=== PATIENT | female | born 1965 | race Caucasian/White ===

== ENCOUNTER 2016-03-25 17:35 | Inpatient (IN) | payer OTHER ==
[~2016-03-25] VITALS: Ht 157.5 cm; Wt 62.0 kg
[~2016-03-25 17:35] MED LIST: ALPR0.254 PO; ESCI5SOL4 PO; ESTR1TAB15 PO
[2016-03-25 17:42] VITALS: BP 123/82; PULSE 103; RESP 16; O2SAT 98
[2016-03-25] MEDS ORDERED: ESCI5SOL4 PO (18:13)
[2016-03-25] MEDS ORDERED: VALA1000 PO (18:13)
[2016-03-25] MEDS ORDERED: QUET100T69 PO (18:13)
[2016-03-25] MEDS ORDERED: ALPR0.5T8 PO (18:13)
--- NOTE | 2016-03-25 18:17 | ED.REPORT ---
HPI-Abd Pain F 40 and Over Date of Service Mar 25, 2016 ED Provider: Harlan Gutierrez MD Pt is a 50 year old female presenting to the ED from [facility] for RUQ abd pain onset 3 hours ago after eating. Denies fever, dysuria. Associated symptoms include nausea, vomiting and diarrhea. She reports previous similar symptoms. She states that she was seen 3 months ago for similar symptoms, and reports increasingly severe episodes over the past year. Nursing Notes Stated Complaint: ABDOMINAL PAIN Chief Complaint: Female Abdominal Pain Nursing Notes Reviewed: Yes Allergies: Coded Allergies: No Known Allergies (Unverified , 03/23/14) Scheduled Escitalopram Oxalate (Escitalopram Oxalate) 5 Mg/5 Ml Solution 20 MG PO DAILY Quetiapine Fumarate (Quetiapine Fumarate) 100 Mg Tablet 100 MG PO HS Scheduled PRN Alprazolam (Alprazolam) 0.5 Mg Tablet 0.5 MG PO QID PRN PRN For Anxiety Valacyclovir HCl (Valtrex) 1,000 Mg Tablet 1,000 MG PO BID PRN PRN COLD SORES General Time Seen by MD: 18:17 Chief Complaint Abdominal pain Hx Obtained From: Patient Arrived By: Walk-in Sudden in Onset?: Yes Onset Occurred: 1 - 4 hours ago Symptom Duration: Since onset Progression since Onset: Constant Location: : RUQ Quality: Painful Severity: Current: Moderate Severity: Maximum: Severe Recent Healthcare: No recent hospitalization, Recent doctor visit Similar Sx Previous: Yes Past Medical History Past Medical History Denies Past Surgical History Endoscopy Denies: Cholecystectomy Reports: Tubal ligation Smoking History Current Every Day Smoker Social History Alcohol Use: Denies alcohol use Ambulatory Status Independent Review of Systems Constitutional: Denies: Fever GI: Reports: Abdominal pain (RUQ), Diarrhea, Nausea, Vomiting Female: Denies: Dysuria Complete sys rev & neg: except as marked. Physical Exam Vital Signs Vital Signs (First) Date Time Temp Pulse Resp B/P Pulse Ox O2 Delivery O2 Flow Rate FiO2 03/25/16 17:42 36.8 103 16 123/82 98 03/25/16 22:07 Room Air Initial VS: Reviewed Head / Eyes: Atraumatic, Normocephalic, PERRL ENT: Mucous membranes moist, Conjunctiva normal, No scleral icterus Neck: Supple, Non-tender, Full range of motion Skin: Warm, Dry, No cyanosis Neurologic: Alert, Oriented, Nonfocal Psychiatric: Mood/affect normal, Behavior normal, Normal thought content General/Constitutional: Awake, Alert, Well appearing Respiratory / Chest: Breath sounds NL, Breath sounds = bilat, No respiratory distress, No rales, No rhonchi, No wheezing, No stridor Cardiovascular: Heart rate NL, Regular rhythm, Heart sounds NL, No gallop, No murmurs, No rubs Abdomen: BS normoactive Tenderness/Guarding/Rebound: Positive: Tender RUQ... (Severe) Interpretation & Diagnostics Interpretation & Diagnostics: US ABDOMEN: IMPRESSION: Cholelithiasis, and gallbladder sludge. Additionally there is pericholecystic fluid positive sonographic Key sign suspicious for acute cholecystitis. However, no definite gallbladder wall thickening or biliary ductal dilatation therefore please correlate clinically and with LFTs. Dictated by: Kike Burns M.D. on 03/25/2016 at 19:50 Lab Results Interpretation Result Diagram: 03/25/16 1845 03/25/16 1845 Test 03/25/16 18:45 White Blood Count 6.7th/mm3 (3.8-10.1) Red Blood Count 4.49mil/mm3 (3.90-5.20) Hemoglobin 14.3g/dL (12.0-15.6) Hematocrit 41.9% (35.0-46.0) Mean Corpuscular Volume 93.3fL (81-100) Mean Corpuscular Hemoglobin 31.8pg (27.0-35.0) Mean Corpuscular Hemoglobin Concent 34.1% (32.0-37.0) Red Cell Distribution Width 12.9% (12.3-15.4) Platelet Count 324bil/L (150-400) Neutrophils (%) (Auto) 57.7% (40-74) Lymphocytes (%) (Auto) 32.6% (14-46) Monocytes (%) (Auto) 5.8% (4-12) Eosinophils (%) (Auto) 3.3% (0-5) Basophils (%) (Auto) 0.6% (0-3) Sodium Level 137mEq/L (134-144) Potassium Level 4.2mEq/L (3.5-5.2) Chloride Level 97mEq/L (97-108) Carbon Dioxide Level 23mmol/L (18-29) Blood Urea Nitrogen 5mg/dL (6-24) Creatinine 0.63mg/dL (0.57-1.00) Estimat Glomerular Filtration Rate 142mL/min (>59) Glucose Level 131mg/dL (60-99) Lactic Acid Level 1.5mmol/L (0.4-2.0) Calcium Level 9.4mg/dL (8.5-10.1) Magnesium Level 2.1mg/dL (1.6-2.6) Total Bilirubin 0.2mg/dL (0.0-1.2) Aspartate Amino Transf (AST/SGOT) 28U/L (0-50) Alanine Aminotransferase (ALT/SGPT) 16U/L (0-32) Alkaline Phosphatase 102U/L (25-150) Total Protein 7.9g/dL (6.4-8.4) Albumin 4.8g/dL (3.4-5.0) Lipase 25U/L (13-60) Re-Eval/Medical Decision Med Decision/Clinical Course 50-year-old female with early acute cholecystitis. Reports that she become symptomatic whenever she eats at this point. She is nontoxic, we have treated her pain adequately with IV Dilaudid and Zofran for nausea. IV fluids and Zosyn started. She is admitted to Dr. Riggs, anticipate operative management in am. Re-Evaluation/Progress #1: Time of Eval: 21:32 Patient Status: Condition improved Re-Evaluation/Progress Note: Discussed US results. Pt pain much improved. Re-Evaluation/Progress #2: Time of Eval: 21:48 Patient Status: Condition improved Re-Evaluation/Progress Note: Discussed ultrasound results and plan for admission with surgery tomorrow. Re-Evaluation/Progress #3: Time of Eval: 22:01 Patient Status: Condition improved Re-Evaluation/Progress Note: Discussed consultation with Dr. Riggs. Pt understands and agrees with plan. Consultation #1: Referral / Consult Name: Kike Burns MD Call Returned at: 19:30 Note: Spoke with radiology about ultrasound results. Consultation #2: Referral / Consult Name: Kya Riggs MD Consulted With: Surgeon Call Returned at: 21:53 Machine Pecan Picker: Will see patient, Agrees with plan, Accepts admit Note: Admit the pt and she will take to surgery tomorrow. Counseled Regarding: Diagnosis, Lab results, Need for follow-up, When/why to return to ED Discharge & Departure Primary Impression: Acute cholecystitis Disposition: ADMITTED TO HOSPITAL (ERASED) Discharge Condition All VS Reviewed: Yes Condition: Improved Referrals: Ángel Vaughan MD (PCP) Danny Attestation Portions of this note were transcribed by Nydia Dickey. I, Dr. Gutierrez personally performed the history, physical exam and medical decision-making; I reviewed and confirmed the accuracy of the information in the transcribed note. Signed by : Danny You, 03/25/2016 and 2203. copies to: Ángel Vaughan MD, Donald L MD Mar 25, 2016 18:17 NYDIA DICKEY Mar 25, 2016 18:27
[2016-03-25] MEDS ORDERED: 0.9% Sodium Chloride 1,000 ML IV ONE (18:25)
[2016-03-25] MEDS ORDERED: Ondansetron 2 mg/mL 2 mL Inj IVPUSH PRN ×2 (18:25→22:15)
[2016-03-25] MEDS: HYDROmorphone 1 mg/mL Inj IVPUSH PRN ×2 (18:45→20:55)
[2016-03-25 18:58] LABS: BASOPHILS % (AUTO) 0.6 % (0-3); EOSINOPHILS % (AUTO) 3.3 % (0-5); MONOCYTES % (AUTO) 5.8 % (4-12); Mean Corpuscular Hemoglobin 31.8 pg (27.0-35.0); Mean Corpuscular Volume 93.3 fL (81-100); NEUTROPHILS % (AUTO) 57.7 % (40-74); Platelet Count 324 bil/L (150-400)
[2016-03-25 19:24] LABS: Magnesium 2.1 mg/dL (1.6-2.6)
--- NOTE | 2016-03-25 19:54 | DRSVH ---
PROCEDURE: US ABDOMEN INDICATIONS: ruq pain suspect cholecystitis TECHNIQUE: Real-time scanning was performed of the abdominal and retroperitoneal organs, with image documentatio n. COMPARISON: None. FINDINGS: Liver: Liver is normal in size and homogeneous in echotexture. Gallbladder: There is gallbladder sludge and a large mobile 1.4 cm gallstone. No definite gallbladder wall thickening. There is pericholecystic fluid. Positive sonographic Key sign. Biliary ducts: Intrahepatic bile ducts are non-dilated. Extrahepatic bile duct caliber is 3-4. No rmal is 6-7 mm or less in diameter, or 10 mm or less post-cholecystectomy. Pancreas: Visualized portions of the pancreas are sonographically normal. Pancreatic tail is obscur ed by shadowing bowel gas Spleen: Spleen is normal in size and homogeneous in echotexture. Kidneys: Kidneys are normal in size and echotexture. Right and left kidneys measure 9.9 and 10.8 cm in length, respectively. No hydronephrosis or nephrolithiasis. No solid masses. Aorta: Visualized aorta is normal in caliber at less than 3 cm. Iliacs: Proximal common iliac arteries are normal in caliber at less than 2.5 cm. IVC: Intrahepatic inferior vena cava is patent. Miscellaneous: No free abdominal fluid. IMPRESSION: Cholelithiasis, and gallbladder sludge. Additionally there is pericholecystic fluid positive sonograp hic Key sign suspicious for acute cholecystitis. However, no definite gallbladder wall thickening or biliary ductal dilatation therefore please correlate clinically and with LFTs. Dictated by: Kike Burns M.D. on 03/25/2016 at 19:50 Approved by: Kike Burns M.D. on 03/25/2016 at 19:52
[2016-03-25] MEDS ORDERED: _HYDROcodone/APAP 5-325 mg Tablet PO PRN (21:50)
[2016-03-25] MEDS ORDERED: _Ondansetron ODT 4 mg Tablet PO PRN (21:50)
[2016-03-25 22:07] VITALS: BP 129/59; PULSE 67; RESP 16; O2SAT 98
[2016-03-25] MEDS ORDERED: HYDROmorphone PCA 0.2 mg/mL 30 mL Inj IV PRN (22:15)
[2016-03-25] MEDS ORDERED: Alum-Mag Hydrox-Simeth 30 mL Suspension PO PRN (22:15)
[2016-03-25] MEDS ORDERED: ALPRAZolam 0.5 mg Tablet PO ONE (22:15)
[2016-03-25] MEDS ORDERED: Piperacillin-Tazo 3.375 Gm Inj 3.375 GM in Dextrose 5% Minibag Plus 50 ML IV ONE (22:15)
[2016-03-25] MEDS ORDERED: HYDROcodone-APAP 5-325 mg Tablet PO PRN (22:24)
[2016-03-25 22:59] VITALS: BP 129/59; PULSE 67; RESP 16; O2SAT 98
[2016-03-25 23:05] VITALS: BP 123/80; PULSE 64; RESP 16; O2SAT 98
[2016-03-25] MEDS: Lactated Ringer's 1,000 ML IV SCH (23:13)
[2016-03-26] VITALS (17 sets, daily range): BP systolic 95–117; BP diastolic 48–64; PULSE 60–102; RESP 11–16; O2SAT 94–100
[2016-03-26 00:23] LABS: APPEARANCE,URINE CLEAR (CLEAR,HAZY); COLOR,URINE YELLOW (YELLOW); OCCULT BLOOD,URINE TRACE (NEGATIVE); PH,URINE 6.5 (5.0-8.0); UROBILINOGEN,URINE NORMAL (NORMAL)
[2016-03-26] MEDS: Piperacillin-Tazo 3.375 Gm Inj 3.375 GM in Dextrose 5% Minibag Plus 50 ML IV SCH ×3 (01:21→16:16)
--- NOTE | 2016-03-26 02:19 | NUR ---
Admit Patient arrived to [facility] room 1008 via ER bed a little after 2300 with at bedside. A&Ox4, answering questions appropriately. IV patent and infusing ABX upon arrival to floor without issue. Patient stating ABD pain starting to creepy up and IVF and Dilaudid DIVERSIONAL THERAPIST set up. DIVERSIONAL THERAPIST education provided to patient and states understanding. Patient aware and compliant of NPO status in preparation for surgery in AM. Oriented to room and call light. Admit and med rec done by admit RN.
--- NOTE | 2016-03-26 08:44 | HP ---
[address] [address] HISTORY AND PHYSICAL PATIENT: SAQIB BAIRD : 1965 MR#: [id number] ADMIT: 03/25/2016 JOB ID: [id number] CHIEF COMPLAINT: Right upper quadrant pain. HISTORY OF PRESENT ILLNESS: The patient is a 50-year-old female who presented to the emergency department last night due to right upper quadrant pain. The patient has been having this type of problem for the past 18 months or so. The issue is mostly postprandial discomfort, associated with nausea, vomiting and diarrhea. The pain starts in the epigastric region and radiates to the right upper quadrant and then goes up to the right shoulder. Patient most recently had another episode on Wednesday night and then she went to her primary care at [facility] on Wednesday. An abdominal ultrasound was ordered. However, she never made it and ended up in the emergency department last night. The patient denies any fever but she did feel clammy. Workup in the emergency department last night did show a normal white count of 6.7; her total bilirubin was 0.2; lipase of 25. However, her abdominal ultrasound showed cholelithiasis, sludge and pericholecystic fluid, with positive sonographic Key sign. The patient was admitted overnight and has been started on IV antibiotics. PAST MEDICAL HISTORY: Tubal ligation and depression and anxiety. MEDICATIONS: Xanax, Lexapro and Valtrex. ALLERGIES: None. SOCIAL HISTORY: The patient is currently in between jobs. She lives with her in [place]. They have a son and a daughter. FAMILY HISTORY: Negative for gallbladder disease, and her parents are . REVIEW OF SYSTEMS: Positive for the postprandial pain, nausea, vomiting and diarrhea. All other systems reviewed were negative. PHYSICAL EXAMINATION: Patient currently in a hospital bed, in no acute distress. Temperature is 36.4, blood pressure 102/63, pulse is 65, respirations 16. Head is normocephalic, atraumatic. There is no scleral icterus. Neck is supple. Heart is regular rate. Lungs are clear bilaterally. Abdomen is mildly obese but it is mildly tender in the epigastric and right upper quadrant regions. There is definitely no rebound. There are no palpable masses. Extremities show no clubbing and no cyanosis. Neurologically, patient is awake and alert and follows commands. LABORATORY DATA: There are no repeat labs this morning. ASSESSMENT: This is a 50-year-old female with acute on chronic cholecystitis and cholelithiasis. Options were discussed with the patient. We will maintain on IV antibiotics, and she will be taken to the operating room today for a laparoscopic cholecystectomy, possible open. The risks of the operation were explained to the patient and her , and they understand and wish to proceed.
[2016-03-26] MEDS: Lactated Ringer's 1,000 ML IV SCH (08:46)
[2016-03-26] MEDS ORDERED: 0.9% Sodium Chloride 250 ML ONE (09:39)
--- NOTE | 2016-03-26 11:30 | NUR ---
Social Work Screen Note: SW met with patient at bedside to discuss discharge plan. Patient is a 50 year old female admitted on 03/25/16 for acute cholecystitis. Patient payer as [employer] [facility] [employer] [facility]. Patient has no intermediate disability nor VA benefits. Patient resides in [facility] with who to assist with care needs. Patient pharmacy of choice as [facility]. Patient has no HHC, SNF, DME history. Patient has no AD and declined completion of form when presented. Patient states Fritz, to assist with care needs at home. Patient denied any further discharge needs at this time. SW to follow pending further clinical course. PLAN: Home with via POV, pending clinical course. SW to follow. Med VILLATORO
--- NOTE | 2016-03-26 12:17 | NUR ---
Transfer to OR Pt. transferred to pre-op at 1205 via gurney. Pt. in stable condition. IV abx running. Pain reported at tolerable level. Report given to CAM MAKER prior to transfer.
[2016-03-26] MEDS ORDERED: Bupivacaine-MPF 0.5% W/EPI 30 mL Inj INJ ONE (12:37)
[2016-03-26] MEDS ORDERED: Lactated Ringer's 1,000 ML IV ONE (12:37)
[2016-03-26] MEDS ORDERED: Lactated Ringer's 500 ML IV PRN (13:11)
[2016-03-26] MEDS ORDERED: Lactated Ringer's 1,000 ML IV SCH (13:11)
--- NOTE | 2016-03-26 13:11 | PCM.HPANE ---
Patient Data Surgeon Admitting Provider:Kumar Townsend MD Attending Provider:Kumar Townsend MD Primary Care Physician:Ángel Vaughan MD Other Provider:Puma Spencer Anesthesia Reason for Visit Acute Cholecystitis Ht/WT & BMI Height (Feet): 5 Height (Inches): 2.00 Weight (Kilograms): 62.000 Body Mass Index 25.15 Allergies Coded Allergies: No Known Allergies (Unverified , 03/23/14) Past Anesthesia History Anesthesia History: Denies:: Abnormal Airway, Anesthesia Reactions, Difficult Intubation, Fam Anesthesia Reaction, Fam Malignant Hypertherm, Malignant Hyperthermia Diabetes History Hx Diabetes?: No MRSA MRSA: No Medications Hypertension Medication: No Home Meds Incl Beta Donny: No Reported Medications Valacyclovir HCl (Valtrex)1,000 Mg Tablet1,000 Mg PO BID PRN COLD SORES 30 Days 03/25/16 Alprazolam 0.5 Mg Tablet0.5 Mg PO QID PRN For Anxiety Ref 0 03/25/16 Escitalopram Oxalate 5 Mg/5 Ml [id number] Mg PO DAILY #1 BOTTLE Ref 0 03/25/16 Quetiapine Fumarate 100 Mg [id number] Mg PO HS Ref 0 03/25/16 Discontinued Reported Medications Estrogens Conj/Medroxyprog 0.3-1.5 mg (Prempro 0.3-1.5 mg)1 Each Tablet1.5 Each PO DAILY 03/23/14 Escitalopram Oxalate 5 Mg/5 Ml [id number] Mg PO DAILY #1 BOTTLE Ref 0 03/23/14 Alprazolam 0.25 Mg Tablet0.25 Mg PO TID PRN For Anxiety 30 Days Ref 0 03/23/14 History History of ENT Problems?: No HEENT History: Denies:: Abnormal Airway Difficult Intubation Hearing Problem Hx of Heart Problems?: No Hx of Respiratory Problem?: No Hx Neurologic Problems?: No Neurological History: Denies:: CVA Hx of GI Problems?: Yes Other GI Pertinent History: renae this admit Hx of Problems?: No Genitourinary History: Denies:: Urinary Tract Infection Female Hx: Denies:: Currently Endometriosis Pelvic Inflammatory Problems with Breasts? Hx Musculoskeletal Problems?: No Hx of Psycho/Social Problems?: Yes Psycho Social History: Positive for:: Anxiety Hx Depression Denies:: Bipolar Disorder Suicide Attempt Hx Surgeries?: Yes (TUBAL LIGATION) Hx Any Other Health Problems?: No History Blood Transfusions: Positive for:: Accept Blood Products? Denies:: Blood Transfusions Hx Diabetes: No Hx Alcohol Use: NoHx Substance Use: No Smoking Status: Current Every Day Smoker Stop/Bang Treated for Sleep Apnea?: No Do You Have a CPAP Machine?: No S-Snoring: Do You Snore Loudly: No T-Tired: feel tired, fatigued: No O-Obsered: Observed not breath: No P-Blood Pressure: treated: No B- Body Mass Index > 35 kg/m2: No A- Age over 50: Yes N- Neck Large Circumference: No G- Gender Male: No RAFAT Total Score: 0 RAFAT Risk Assessment: Low Risk, <3 Yes Risk Assessment Category Category 1A: Patient has history of documented sleep apnea, and HAS NOT received any narcotic, sedative or anesthesia administration during this stay. Category 1B: Patient has history of documented sleep apnea, and HAS received any narcotic , sedative or anesthesia administration during this stay Category 2: Patient has SUSPECTED Obstructive Sleep Apnea, and HAS received any narcotic , sedative or anesthesia administration during this stay. Category 3: Patient has SUSPECTED Obstructive Sleep Apnea and HAS NOT received narcotic, sedative or anesthesia administration during this stay. Category 4: Outpatient in Procedural Areas with known sleep apnea or who screen positive for High Risk via the STOP/BANG questionnaire. Exam Exam Vital Signs Vital Signs Date Time Temp Pulse Resp B/P Pulse Ox O2 Delivery O2 Flow Rate FiO2 03/26/16 08:09 36.9 70 16 117/61 98 Room Air 03/26/16 05:52 36.4 65 16 102/63 97 Room Air 03/26/16 05:29 16 97 General Appearance: Oriented X3, Cooperative HEENT/AIRWAY: MP 1 Lungs: Clear to Auscultation Heart: Exam Unremarkable Meds/Labs/Diagnostics Admission Meds Current Medications Sodium Chloride 1,000 ml @ 0 mls/hr Q0M ONCE IV Last administered on 18:45; Start 03/25/16 at 18:25; Stop 03/25/16 at 18:26; Status DC Piperacillin Sod/ Tazobactam Sod 3.375 gm/Dextrose/ Water 50 ml @ 100 mls/hr ONCE ONCE IV Last administered on 03/25/16 22:45; Start 03/25/16 at 22:15; Stop 03/25/16 at 22:44; Status DC Lactated Ringer's 1,000 ml @ 125 mls/hr Q8H IV Last administered on 03/26/16 08:46; Start 03/25/16 at 22:12 Piperacillin Sod/ Tazobactam Sod/ Dextrose/Water (Zosyn 3.375 Gm Inj/D5W Minibag Plus) 50 ml @ 12.5 mls/hr Q8 IV Last administered on 03/26/16 09:47; Start 03/26/16 at 00:30 Quetiapine Fumarate (SEROquel) 100 mg ONCE ONCE PO Last administered on 22:55; Start 03/25/16 at 22:15; Stop 03/25/16 at 22:20; Status DC Alprazolam 0.5 mg 0.5 mg ONCE ONCE PO Last administered on 03/25/16 22:59; Start 03/25/16 at 22:15; Stop 03/25/16 at 22:20; Status DC Sodium Chloride (Normal Saline) [facility] Last administered on 03/26/16 09:47; Start 03/26/16 at 09:39; Stop 03/26/16 at 09:41 ; Status DC Labs Test 03/25/16 18:45 03/25/16 22:56 White Blood Count 6.7th/mm3 (3.8-10.1) Red Blood Count 4.49mil/mm3 (3.90-5.20) Hemoglobin 14.3g/dL (12.0-15.6) Hematocrit 41.9% (35.0-46.0) Mean Corpuscular Volume 93.3fL (81-100) Mean Corpuscular Hemoglobin 31.8pg (27.0-35.0) Mean Corpuscular Hemoglobin Concent 34.1% (32.0-37.0) Red Cell Distribution Width 12.9% (12.3-15.4) Platelet Count 324bil/L (150-400) Neutrophils (%) (Auto) 57.7% (40-74) Lymphocytes (%) (Auto) 32.6% (14-46) Monocytes (%) (Auto) 5.8% (4-12) Eosinophils (%) (Auto) 3.3% (0-5) Basophils (%) (Auto) 0.6% (0-3) Sodium Level 137mEq/L (134-144) Potassium Level 4.2mEq/L (3.5-5.2) Chloride Level 97mEq/L (97-108) Carbon Dioxide Level 23mmol/L (18-29) Blood Urea Nitrogen 5mg/dL (6-24) Creatinine 0.63mg/dL (0.57-1.00) Estimat Glomerular Filtration Rate 142mL/min (>59) Glucose Level 131mg/dL (60-99) Lactic Acid Level 1.5mmol/L (0.4-2.0) Calcium Level 9.4mg/dL (8.5-10.1) Magnesium Level 2.1mg/dL (1.6-2.6) Total Bilirubin 0.2mg/dL (0.0-1.2) Aspartate Amino Transf (AST/SGOT) 28U/L (0-50) Alanine Aminotransferase (ALT/SGPT) 16U/L (0-32) Alkaline Phosphatase 102U/L (25-150) Total Protein 7.9g/dL (6.4-8.4) Albumin 4.8g/dL (3.4-5.0) Lipase 25U/L (13-60) Urine Color Yellow (YELLOW) Urine Appearance Clear (CLEAR,HAZY) Urine pH 6.5 (5.0-8.0) Urine Specific [place] 1.010 (1.003-1.035) Urine Protein Negativemg/dL (NEG,TRACE) Urine Glucose (UA) Negativemg/dL (NEGATIVE) Urine Ketones Negativemg/dL (NEGATIVE) Urine Occult Blood Trace (NEGATIVE) Urine Nitrite Negative (NEGATIVE) Urine Bilirubin Negative (NEGATIVE) Urine Urobilinogen Normalmg/dL (NORMAL) Urine Leukocyte Esterase Trace (NEGATIVE) Urine RBC 0-2/hpf (0-2) Urine WBC 0-5/hpf (0-5) Urine Epithelial Cells Moderate/hpf (NONE-MOD) Urine Crystals None seen (NONE SEEN) Urine Bacteria None/hpf (NONE-FEW) Urine Hyaline Casts None/lpf (NONE) Urine Granular Casts None seen (NONE SEEN) Urine Waxy Casts None seen (NONE SEEN) Urine Red Blood Cell Casts None seen (NONE SEEN) Urine White Blood Cell Casts None seen (NONE SEEN) Urine Mucus Present (None Seen) Urine Trichomonas None seen (NONE SEEN) Urine Yeast None (NONE SEEN) Urine Culture Reflexed Indicated Plan Impression Patient chart reviewed, patient interviewed and anesthestic plan with risks, benefits, and alternatives discussed, and informed consent obtained. ASA Physical Status: ASA2 Mod Systemic Disease Anesthetic Plan: GA Bene/Risks/Altern/Consents: Yes HP Complete Prior to Induction: Yes Jose Adhikari DO Mar 26, 2016 11:50
[2016-03-26] MEDS ORDERED: MetoCLOpramide 5 mg/mL 2 mL Inj IVPUSH PRN (13:15)
[2016-03-26] MEDS ORDERED: HYDROmorphone 1 mg/mL Inj IVPUSH PRN (13:15)
[2016-03-26] MEDS ORDERED: Dexamethasone 4 mg/mL Inj IVPUSH PRN (13:15)
[2016-03-26] MEDS ORDERED: fentaNYL-PF 50 mCg/mL 2 mL Inj IVPUSH PRN (13:15)
[2016-03-26] MEDS ORDERED: EPHEDrine Sulfate 50 mg/mL Inj IVPUSH PRN (13:15)
[2016-03-26] MEDS ORDERED: Phenylephrine 10,000 mCg/mL Inj IVPUSH PRN (13:15)
[2016-03-26] MEDS ORDERED: Ondansetron 2 mg/mL 2 mL Inj IVPUSH PRN (13:15)
[2016-03-26] MEDS ORDERED: Atropine 0.4 mg/mL Inj IVPUSH PRN (13:15)
[2016-03-26] MEDS ORDERED: hydrALAZINE 20 mg/mL Inj IVPUSH PRN (13:15)
[2016-03-26] MEDS ORDERED: Labetalol 5 mg/mL 4 mL Inj IV PRN (13:15)
[2016-03-26] MEDS ORDERED: HYDROmorphone 0.5 mg/0.5 mL iSecure Syringe IVPUSH PRN (13:55)
[2016-03-26] MEDS ORDERED: HYDROcodone-APAP 5-325 mg Tablet PO PRN (13:55)
--- NOTE | 2016-03-26 14:06 | OP ---
[address] [address] OPERATIVE REPORT PATIENT: SAQIB BAIRD : 1965 MR#: [id number] ADMIT: 03/25/2016 JOB ID: [id number] DATE OF SURGERY: 03/26/2016 SURGEON: Kumar Townsend MD SURVEY QUESTIONNAIRE DESIGNER: OR scrub. ANESTHESIA: General. PREOPERATIVE DIAGNOSIS(ES): Cholelithiasis and cholecystitis. POSTOPERATIVE DIAGNOSIS(ES): Cholelithiasis and cholecystitis. PRINCIPAL PROCEDURE: Laparoscopic cholecystectomy with intraoperative cholangiogram. INDICATION FOR PROCEDURE: The patient is a 50-year-old female with upper abdominal pain and ultrasound findings of cholelithiasis and possible cholecystitis. OPERATIVE FINDING: Principal finding is early acute cholecystitis. Successful laparoscopic cholecystectomy. The intraoperative cholangiogram was normal. PROCEDURE COURSE: The patient was brought to the operating table and was provided with general anesthesia. The patient had already been receiving IV antibiotics. She was provided with SCDs. A time-out was performed. The patient's abdomen was then prepped and draped in the usual sterile fashion. Next, local anesthetic was injected into the infraumbilical location and a 5 mm stab incision was made. A Veress needle was used to establish a pneumoperitoneum. Next, a 5 mm trocar was then placed and the laparoscope was introduced. A second 12 mm trocar was then placed in the subxiphoid location, and two additional 5 mm trocars were then placed in the right lateral abdomen. There was omentum covering the gallbladder and these were detached. The gallbladder was then retracted cephalad and dissection of the infundibulum and Calot triangle was then carried out. The cystic duct was able to be visualized and isolated completely. A clip was then placed on the gallbladder/cystic duct junction and a partial transection of the duct was made. Intraoperative cholangiogram demonstrated normal proximal and distal biliary anatomy, without any filling defects, and the contrast drained into the duodenum. Next, the cholangiocatheter was then removed from the patient. Two additional clips were then placed on the proximal cystic duct and the duct was then transected. The cystic artery was similarly identified and clipped and divided. Electrocautery was then used to detach the gallbladder from the gallbladder fossa. The specimen was then placed into the EndoCatch bag and removed from the patient. The right upper quadrant was irrigated and suctioned. Hemostasis was verified. There were no signs of arterial bleeding at the end the case. Next, we turned our attention to the subxiphoid port. The fascial defect there was then reapproximated using 0 Vicryl suture. Next, CO2 was allowed to escape. The skin edges were then reapproximated using absorbable sutures. By the end of the procedure, needle counts and sponge counts were correct. The patient was then extubated and taken to the recovery room in stable satisfactory condition.
[2016-03-26] MEDS: Ondansetron 2 mg/mL 2 mL Inj IVPUSH PRN ×2 (14:34→16:15)
--- NOTE | 2016-03-26 14:48 | PCM.ANEP1 ---
Post Anesthesia Phase 1 PACU Phase 1 Assessment Anesthetic Administered: GA Level of Alertness: Sleeping, hard to arouse REZA's with Equal Strength: Yes Pain: No Nausea or Vomiting: No Airway Device: Oralpharangeal Airway Oxygen Delivery: Simple Mask Jose Adhikari DO Mar 26, 2016 14:48
--- NOTE | 2016-03-26 14:49 | PCM.ANEP2 ---
Post Anesthesia Evaluation ASA/CMS Post Anesthesia VS in Patient's Normal Range?: Yes Resp Stable; Airway Patent?: Yes CV Function & Hydration Stable: Yes Mental Status Recovered?: Yes Pain control Satisfactory?: Yes N/V Control Satisfactory?: Yes Jose Adhikari DO Mar 26, 2016 14:49
--- NOTE | 2016-03-26 15:17 | DRSVH ---
PROCEDURE: X-RAY OPERATIVE CHOLANGIOGRAM ([id number]) INDICATIONS: CHOLIANGIOGRAM COMPARISON: None. FINDINGS: Biliary ducts: The surgeon injected contrast into the biliary ducts after cannulation of the cystic duct stump. Visualized intra- and extrahepatic bile ducts are normal in caliber, without strictures. No intraluminal filling defects to suggest retained ductal stones or sludge. No evidence for iatro genic ductal injury. Duodenum: Contrast flows promptly through the sphincter of Oddi into the duodenum, which appears nor mal in caliber. IMPRESSION: Small amount of extravasation at the cystic duct cannulation site otherwise normal operat brittny cholangiogram. Dictated by: Abbe Oleary RRA Interpreted: Sherrie Lee MD on 03/26/2016 at 15:16 Transcribed by: INDY on 03/26/2016 at 15:17 Approved by: Sherrie Lee MD, PhD on 03/26/2016 at 17:32
--- NOTE | 2016-03-26 17:47 | PCM.DISURG ---
Surgical Discharge Instruction Date of Service Mar 26, 2016 Dates of Hospitalization Date of Hospital Admission Mar 25, 2016 at 22:24 Providers Admitting Physician: Kumar Townsend MD Primary Care Physician: Ángel Vaughan MD Attending Physician: Kumar Townsend MD Discharge Diagnosis Discharge Diagnosis Cholecystitis s/p lap cholecystectomy Diet Discharge Diet: No restrictions Activity Discharge Activity-General: Balance rest and activity, Activity as pain allows , No lifting >15 pounds for 2 weeks, No driving while taking narcotic Dressing and Incisional Care Dressing Care: Keep dressing clean, dry & intact, Allow Steri Stripes to fall off Hygiene: May shower (Tomorrow) Additional Instructions Discharge Instructions Rx: norco #30, colace Follow Up Plan Follow-up Provider (F9): Elkin Sousa PA-C Follow-up appointment: Weeks (2-3) Call your provider for: Fever, Shortness of breath, Increasing abdominal pain, Vomiting, Discharge @ incision, pus discharge Kumar Townsend MD Mar 26, 2016 17:47
--- NOTE | 2016-03-26 17:48 | PCM.DISURG ---
Surgical Discharge Instruction Date of Service Mar 26, 2016 Dates of Hospitalization Date of Hospital Admission Mar 25, 2016 at 22:24 Providers Admitting Physician: Kumar Townsend MD Primary Care Physician: Ángel Vaughan MD Attending Physician: Kumar Townsend MD Activity Discharge Activity-General: Balance rest and activity, Activity as pain allows , No lifting >15 pounds for 2 weeks, No driving while taking narcotic Follow Up Plan Follow-up Provider (F9): Elkin Sousa PA-C Follow-up appointment: Weeks (2-3) Call your provider for: Fever, Shortness of breath, Increasing abdominal pain, Vomiting, Discharge @ incision, pus discharge Additional Information Additional Information OK to take home meds Kumar Townsend MD Mar 26, 2016 17:48
[2016-03-26] MEDS ORDERED: Neostigmine 1 mg/mL 5 mL Inj ONE (18:27)
[2016-03-26] MEDS ORDERED: Propofol 10,000 mCg/mL 20 mL Inj ONE (18:27)
[2016-03-26] MEDS ORDERED: Ondansetron 2 mg/mL 2 mL Inj ONE (18:27)
[2016-03-26] MEDS ORDERED: EPHEDrine/NS 5 mg/mL 5 mL Syringe ONE (18:27)
[2016-03-26] MEDS ORDERED: Lidocaine PF 1% 30 mL Inj ONE (18:27)
[2016-03-26] MEDS ORDERED: fentaNYL-PF 50 mCg/mL 2 mL Inj ONE (18:27)
[2016-03-26] MEDS ORDERED: Dexamethasone 4 mg/mL Inj ONE (18:27)
[2016-03-26] MEDS ORDERED: Glycopyrrolate 0.2 mg/mL 5 mL Inj ONE (18:27)
[2016-03-26] MEDS ORDERED: Rocuronium 10 mg/mL 5 mL Inj ONE (18:27)
--- NOTE | 2016-03-26 18:33 | NUR ---
Discharge Pt. transferred to home in stable condition at 1825. Walking and accompanied by spouse. IV dc'd prior to discharge. All instructions, scripts, and belongings with pt. Tolerating general diet well. Pain under control.
--- NOTE | 2016-03-27 14:07 | PCM.DC.SUR ---
Discharge Summary Date of Service: Date of Hospital Admission: Mar 25, 2016 at 22:24 Date of Operation(s): 03/26/2016 Date of Discharge: 03/26/2016 Diagnosis at Time of Discharge Primary diagnosis: Cholecystolithiasis Other diagnoses: 1. Depression 2. Anxiety Problems: Operation Laparoscopic cholecystectomy with intraoperative cholangiography Brief History and Physical: The patient is a 50-year-old female who presented to the emergency department due to right upper quadrant pain. The patient has been having this type of problem for the past 18 months or so. The issue is mostly postprandial discomfort, associated with nausea, vomiting and diarrhea. The pain starts in the epigastric region and radiates to the right upper quadrant and then goes up to the right shoulder. The patient most recently had another episode on Wednesday night and then she went to her primary care at [facility] on Wednesday. An abdominal ultrasound was ordered. However, she never made it and ended up in the emergency department. The patient denied any fever but she did feel clammy. Workup in the emergency department did show a normal white count of 6.7; her total bilirubin was 0.2; lipase of 25. However, her abdominal ultrasound showed cholelithiasis, sludge and pericholecystic fluid, with positive sonographic Key sign. Consultants: None Hospital Course: The patient was admitted and underwent the following operation without complication the following day. She was stable for discharge shortly after her operation on her operative day. Pathology: Pending Disposition: The patient was discharged to home on her operative day. Follow-up Plan: She will follow-up in the office with Elkin Sousa PA-C in 2-3 weeks. Alprazolam (Alprazolam) 0.5 Mg Tablet 0.5 MG PO QID PRN PRN For Anxiety ( Reported) Escitalopram Oxalate (Escitalopram Oxalate) 5 Mg/5 Ml Solution 20 MG PO DAILY ( Reported) Quetiapine Fumarate (Quetiapine Fumarate) 100 Mg Tablet 100 MG PO HS (Reported) Valacyclovir HCl (Valtrex) 1,000 Mg Tablet 1,000 MG PO BID PRN PRN COLD SORES ( Reported) copies to: Ángel Vaughan MD, Fred H PA-C Mar 27, 2016 14:07
--- NOTE | 2016-03-30 13:34 | PATH ---
SURGICAL PATHOLOGY Attending Physician:Kumar Townsend M.D. CASE STATUS: Signed Out PATIENT NAME: SAQIB BAIRD PID: [id number] : 1965 DATE COLLECTED:03/26/2016 22:38 SPECIMEN: Gallbladder CLINICAL HISTORY: ACUTE CHOLECYSTITIS 1). GALL BLADDER FINAL DIAGNOSIS: Gallbladder: Cholelithiasis with associated chronic cholecystitis and cholesterolosis. ICD10: K80.66 GROSS DESCRIPTION: The specimen is received in one formalin filled container labeled with the patient's name, sublabeled "gallbladder" and consists of a slightly opened 7.0 x 3.2 x 3.2 CM gallbladder. The serosa is smooth. The wall is 0.2-0.3 CM in thickness. The mucosa is a dark green in color. The lumen contains a dark green mucoid material in one light yellow green calculus which measures 1.1 x 1.0 x 1.0 CM. 5 account services representative sections are submitted in one cassette. 03/26/2016 [facility] ICD-9 CODES: CPT CODES: 1: 38373 Electronically Signed Out Harlan House MD [facility] [address], [place] [address] Technical component performed at [facility], [address] [place] [address] Ave[address], [place], [address]
== END 2016-03-26 18:28 | disposition home or self-care (01) | DRG 419 ==
LOC: SED 17:35 → OSC 22:24
PROVIDERS: ADMIT Surgery; ATTEND Surgery
PROC: BF131ZZ Fluoroscopy of Gallbladder and Bile Ducts using Low Osmolar Contrast (ICD-10-PCS; 2016-03-26)
PROC: 0FT44ZZ Resection of Gallbladder, Percutaneous Endoscopic Approach (ICD-10-PCS; principal; 2016-03-26 12:15)
DX: K80.00 Calculus of gallbladder with acute cholecystitis without obstruction (principal); F41.8 Other specified anxiety disorders

== ENCOUNTER 2016-06-23 15:40 | Emergency (ER) | payer OTHER ==
[~2016-06-23] VITALS: Ht 154.9 cm; Wt 54.5 kg
[~2016-06-23 15:40] MED LIST changes: -ALPR0.254 PO; +ALPR0.5T8 PO; -ESTR1TAB15 PO; +QUET100T69 PO; +VALA1000 PO
[2016-06-23 15:44] VITALS: BP 144/92; PULSE 91; RESP 16; O2SAT 99
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
[2016-06-23] MEDS ORDERED: diphenhydrAMINE 25 mg Capsule PO ONE (16:35)
== END 2016-06-23 16:53 | disposition home or self-care (01) ==
LOC: SED 15:40
DX: T25.122A Burn of first degree of left foot, initial encounter (principal); T31.0 Burns involving less than 10% of body surface; X12.XXXA Contact with other hot fluids, initial encounter; Y92.9 Unspecified place or not applicable; Y93.89 Activity, other specified; Y99.8 Other external cause status; F41.9 Anxiety disorder, unspecified; F32.9 Major depressive disorder, single episode, unspecified; F17.200 Nicotine dependence, unspecified, uncomplicated

== ENCOUNTER 2016-11-16 15:34 | Emergency (ER) | payer OTHER ==
[~2016-11-16] VITALS: Ht 154.9 cm; Wt 56.4 kg
[2016-11-16 15:50] VITALS: BP 151/113; PULSE 84; RESP 16; O2SAT 100
[2016-11-16] MEDS ORDERED: VENL-57 PO (16:28)
--- NOTE | 2016-11-16 17:02 | ED.REPORT ---
HPI-Psychiatric Illness Date of Service Nov 16, 2016 ED Provider: Canelo Hill PA-C Kirti is a 51-year-old female with a history of depression who presents emergency Department with a chief complaint of suicidal ideation. Patient reports a long history of depression and anxiety, multiple trials of antidepressant medications. Today she complains of thoughts of killing herself. She can site no precipitating event. She denies any plan or previous attempts. She denies a history of mental health hospitalizations, suicide by family members or close friends. She admits to drinking 1-3 alcoholic beverages in the evening, denies recreational drug use. She has been taking venlafaxine for the last 2 weeks. Patient presents with a supportive partner. She feels that admission may be helpful to her, but expresses anxiety about being "put in a mental institution." She denies significant medical history or physical complaints. Denies possibility of Nursing Notes Stated Complaint: SUICIDAL Chief Complaint: Psychiatric Complaint Nursing Notes Reviewed: Yes Allergies: Coded Allergies: No Known Allergies (Unverified , 03/23/14) Scheduled Quetiapine Fumarate (Quetiapine Fumarate) 100 Mg Tablet 100 MG PO HS Venlafaxine ER (Venlafaxine ER) 37.5 Mg Cap.er.24h 75 MG PO DAILY Scheduled PRN Alprazolam (Alprazolam) 0.5 Mg Tablet 0.5 MG PO QID PRN PRN For Anxiety hydrOXYzine Hcl (HydrOXYzine Hcl) 25 Mg Tablet 25-50 MG PO TID PRN PRN For Anxiety General Time Seen by MD: 16:36 Chief Complaint Suicidal ideation Risk-Psychiatric Illness Suicide Risk Stratification Suicide Risk Factors - Adult: No: Close associate suicide, Family Hx of Suicide , Previous attempt, Prior psych admission, Substance abuse RF Statements: Risk factors reviewed Past Medical History Past Medical History Anxiety and Depression Past Surgical History Endoscopy Reports: Tubal ligation Smoking History Current Every Day Smoker Social History Alcohol Use: Denies alcohol use Ambulatory Status Independent Review of Systems Review of Systems Note: General: Denies fever, chills, malaise. HEENT: Denies congestion, headache, sore throat. Respiratory: Denies dyspnea, cough, shortness of breath, wheezing. Cardiovascular: Denies chest pain, palpitations. Gastrointestinal: Denies vomiting, diarrhea, abdominal pain. Genitourinary: Denies frequency, urgency, dysuria, hematuria. Denies vaginal bleeding/discharge. Otherwise as noted in HPI. Physical Exam General: Well appearing, well developed, well nourished, no acute distress. Head: Atraumatic, normocephalic. Eyes: No scleral icterus or injection. No discharge. Vision grossly intact. ENT: Voice clear, hearing grossly intact. Respiratory: Regular rate and rhythm. Breath sounds present, clear to auscultation and equal bilaterally. No respiratory distress. No increased work of breathing, speaks in complete sentences. Cardiovascular: Regular rate and rhythm, without murmur, gallop or rub. No pedal edema. Gastrointestinal: Abdomen flat and non-tender without guarding or rebound. Bowel sounds normoactive. Negative CVA tenderness Skin: Warm and dry. Neurological: Normal gait, Grossly nonfocal. Cranial nerves: Vision grossly intact, PERRL, EOMI. Facial motion symmetrical, sensation to light touch over forehead, maxilla and mandible present and equal B /L. Voice clear and fluent, no drooling/pooling of saliva, uvula rises midline. Psychological: Alert and oriented. Speech appropriate, linear and logical. Behavior appropriate. Initial Vital Signs Vital Signs (First) Date Time Temp Pulse Resp B/P Pulse Ox O2 Delivery O2 Flow Rate FiO2 11/16/16 15:50 37.0 84 16 151/113 100 Room Air Elevated blood pressure Interpretation & Diagnostics Lab Results Interpretation Test 11/16/16 16:37 Re-Eval/Medical Decision Med Decision/Clinical Course Otherwise healthy 51-year-old female with a history of depression presents emergency Department with suicidal ideation. Patient reports ongoing depression and anxiety, worsening in the last month. Concerned that she might hurt herself , without plan or suicidal history. No history of hospitalizations. She has psychiatric follow-up arranged for December 01. Physical examination reveals normal medical instability, normal examination with normal vitals. I discussed the case with IRVING Amato who met with and examine the patient. We agree that inpatient treatment probably not most appropriate for this patient, and feel confident that if she can contract for safety and seek treatment on an outpatient basis this would be appropriate. The patient is wishing to be prescribed medications to "make it better." I conveyed my concerns about chronic psychotropic medications at in the emergency setting, and she was understanding. Except's offer of hydroxyzine prescription. Contracts convincingly for safety as described in discharge instructions. Advised psychiatric follow-up as planned, provided him a return precautions and crisis line. Patient and her partner verbalized understanding of and consent to the plan. I discussed this case with Dr. Antoine who expresses agreement. Discharge & Departure Impression: Primary Impression: Depression with suicidal ideation Additional Impression: Elevated blood pressure reading )( Condition at Discharge: No danger to self, No danger to others Disposition: Home Discharge Condition All VS Reviewed: Yes Condition: Stable Additional Instructions: Evaluation for suicidal ideation in the emergency department includes interview , physical examination, urinalysis and consultation with our social services assistant. At this time we believe you are stable and safe to go home under the following conditions: You have assured me you have no intention of harming yourself at this time. You have committed to me that he will return to the emergency department should that change. You can do this by calling 911. You can also contact the crisis line at [phone] if you have thoughts of harming yourself. You have committed to me that he will abstain from drugs and alcohol until your suicidal ideation has resolved. Please follow up as planned. Chivo you prescription for hydroxyzine, which may be able find helpful for anxiety and sleep. You can take 1-2 tabs up to 3 times a day as needed for anxiety. This medication is most helpful before bed. Do not drive or drink alcohol with taking this medication. Return to emergency department for any new or worsening symptoms including a compulsion to act on thoughts of harming yourself or others. I also note that your blood pressure was elevated during your visit to the emergency department. Please discuss this with your primary care provider. Referrals: Paulina Brady EDSupervising Provider for APC: Diallo Lemon MD copies to: Paulina Brady Seth PA-C Nov 16, 2016 17:02
[2016-11-16] MEDS ORDERED: HYDR-656 PO (18:16)
[2016-11-16 18:52] VITALS: BP 128/89; PULSE 82; RESP 16; O2SAT 99
== END 2016-11-16 18:54 | disposition home or self-care (01) ==
LOC: SED 15:34
DX: F32.9 Major depressive disorder, single episode, unspecified (principal); R45.851 Suicidal ideations; R03.0 Elevated blood-pressure reading, without diagnosis of hypertension; F41.9 Anxiety disorder, unspecified; F17.200 Nicotine dependence, unspecified, uncomplicated